=== PATIENT | female | born 1940 | race Caucasian/White ===

== ENCOUNTER 2023-11-05 08:40 | Outpatient (CLI) | payer MEDICARE | END 2023-11-05 08:41 | disposition home or self-care (01) | LOC: CSHMAMMO 08:40 | PROVIDERS: ATTEND Family Medicine | DX: Z13.820 Encounter for screening for osteoporosis (principal); M81.0 Age-related osteoporosis without current pathological fracture; Z78.0 Asymptomatic menopausal state | CPT/HCPCS: 77080 ==